=== PATIENT | male | born 1935 | race Two or more races ===

== ENCOUNTER 2018-09-18 15:24 | Emergency (ER) | payer OTHER ==
[~2018-09-18] VITALS: Ht 172.7 cm; Wt 78.0 kg
--- NOTE | 2018-09-18 15:30 | NUR ---
PT [id number] C/O N/V x 1HR, +DIARRHEA,-SOB,-CP,+DIZZINESS.ZOFRAN 4MG GIVEN EMS, PT IS AAOX3, NOT IN RESPIRATORY DISTRESS, V/S STABLE, KEPT RESTED AND COMFORTABLE, WILL CONTINUE TO MONITOR.
--- NOTE | 2018-09-18 15:36 | NUR ---
LABS DRAWNED AND SENT TO LAB.
--- NOTE | 2018-09-18 15:45 | NUR ---
SEEN AND EXAMINED BY DR. LICONA.
[2018-09-18] MEDS ORDERED: ONDANSETRON HCL/PF 4 MG/2 ML VIAL IVP ONE (16:00)
[2018-09-18] MEDS ORDERED: IV NS 0.9% 1,000 ML BAG IV ONE (16:00)
[2018-09-18 16:08] LABS: BASOPHILS # (AUTO) 0.1 /CMM (0.0-0.2); BASOPHILS % (AUTO) 0.7 % (0.0-2.0); EOSINOPHILS % (AUTO) 0.7 % (0.0-6.0); HEMATOCRIT 41 % (39-51); HEMOGLOBIN 13.9 g/dL (13.5-17.5); LYMPHOCYTES % (AUTO) 37.4 % (20.0-44.0); MEAN CORPUSCULAR HGB CONC 34 g/dl (31.0-36.0); MEAN CORPUSCULAR VOLUME 92 fL (80-96); MONOCYTES # (AUTO) 0.6 /CMM (0.1-1.30); MONOCYTES % (AUTO) 7.9 % (2.0-12.0); NEUTROPHILS # (AUTO) 4.3 /CMM (1.8-8.9); NEUTROPHILS % (AUTO) 53.3 % (43.0-81.0); PLATELET COUNT (AUTO) 149 /CMM (150-450); RED BLOOD CELL COUNT(AUTO) 4.45 MIL/uL (4.5-6.0); WHITE BLOOD COUNT (AUTO) 8.1 K/uL (4.3-11.0)
[2018-09-18] MEDS ORDERED: ONDANSETRON HCL/PF 4 MG/2 ML VIAL ONE (16:13)
[2018-09-18 16:17] LABS: CALCIUM, SERUM 9.3 mg/dL (8.5-10.1); CARBON DIOXIDE 25 mmol/L (21-32); CHLORIDE 100 mmol/L (98-107); GLUCOSE 190 mg/dL (74-106); POTASSIUM 3.2 mmol/L (3.5-5.1); SODIUM SERUM 137 mmol/L (136-145); UREA NITROGEN, BLOOD 16 mg/dL (7-18)
[2018-09-18 16:22] LABS: ALANINE AMINOTRANSFERASE 28 U/L (12-78); ALKALINE PHOSPHATASE 56 U/L (46-116); ASPARTATE AMINOTRANSFERASE 20 U/L (15-37); BILIRUBIN,DIRECT 0.2 mg/dL (0.0-0.2); LIPASE 74 U/L (73-393); TOTAL PROTEIN, SERUM 7.4 g/dL (6.4-8.2)
--- NOTE | 2018-09-18 16:37 | NUR ---
PT IS BACK FROM THE CT SCAN.
[2018-09-18] MEDS ORDERED: FINA5TAB11 PO (17:08)
[2018-09-18] MEDS ORDERED: LOVA40TA2 PO (17:08)
[2018-09-18] MEDS ORDERED: OXYB5TAB11 PO (17:08)
--- NOTE | 2018-09-18 17:27 | NUR ---
URINE SPECIMEN COLLECTED AND SENT TO LAB.
[2018-09-18 17:39] LABS: APPEARANCE,URINE Clear (CLEAR); BILIRUBIN,URINE Negative (NEGATIVE); BLOOD, URINE Negative Ery/uL (NEGATIVE); COLOR,URINE Yellow (YELLOW); KETONES,URINE 40 (NEGATIVE); LEUKOCYTE ESTERASE ,URINE Negative (NEGATIVE); NITRITE, URINE Negative (NEGATIVE); PH,URINE 5.5 (5.0-8.0); PROTEIN,URINE Negative (NEGATIVE); UGLUCOSE Negative (NEGATIVE); UROBILINOGEN,URINE 0.2 EU/dL (0.2)
--- NOTE | 2018-09-18 17:56 | NUR ---
RECEIVED A CALL FROM [facility] .PT IS GOING TO [facility] ER [phone], ACCEPTING MD HOROWITZ, ETA [id number].
--- NOTE | 2018-09-18 18:10 | NUR ---
REPORT GIVEN TO ALIZA POP FOR [facility] IN [facility].
--- NOTE | 2018-09-18 19:27 | NUR ---
REPORT GIVEN TO EMT FOR TRANSPORT TO [facility].
[2018-09-18 19:28] VITALS: BP 127/77
== END 2018-09-18 19:32 | disposition short-term general hospital (02) ==
LOC: ER 15:28
DX: R55 Syncope and collapse (principal); E86.0 Dehydration; E87.6 Hypokalemia; E78.5 Hyperlipidemia, unspecified; N40.0 Benign prostatic hyperplasia without lower urinary tract symptoms
CPT/HCPCS: 36415; 70450; 71045; 80048; 80076; 81001; 83690; 84484; 85025; 87086; 93005; 96361; 96374; 99285; A4606; J2405; J7030; 81000-TC